=== PATIENT | female | born 1990 | race Caucasian/White ===

== ENCOUNTER → 2018-09-08 | Outpatient (CLI) | payer BC | LOC: COL.RAD 07:25 | DX: R10.11 Right upper quadrant pain (principal) ==

== ENCOUNTER → 2018-12-02 | Outpatient (CLI) | payer BC ==
[~2018-12-02] MED LIST: ATARAX 25MG25 MG/TAB PO; IBU600 MG PO; PERCOCET 325 MG1 TA2 PO; PRENATAL; WELLBUTRIN XL150 MG PO; ZYRTEC 10MG10 MG PO
--- NOTE | 2018-12-02 10:48 | NUR ---
Marija Johnathan into the clinic with 6 day old "Antonio" ( [birth year]) for evaluation and weight check. Marija has been using a breast shield and expresses a desire to breastfeed without it. Marija states Antonio nurses 7-8 times per day, has 4-5 wet diapers per day, and 4 brown/seedy soiled diapers. Today, Antonio' weight was 8#1 oz (3650 g) and d/c weight was 7# 6 oz (3355 g). Today's prefeed weight was 7# 3.5 oz (3274 g), putting infant at 10 % below weight. While at clinic LC assisted with latching without the use of the shield. nursed for approx 15 min from each breast, the went back to the first breast for another 5 min taking a total of 1.5 oz (41 g). Due to concern with latch and low transfer, this LC evaluated infant's mouth and noted tight sublinqual frenulum that may be impending Antonio' latch and milk transfer. Information for local pediatric dentist provided. Plan of care: Continue to feed ad mandy at least 8 times per day, offering each breast per feeding. Breastfeed without shield if able to obtain a good latch, otherwise use shield as needed. Pump and supplement 1 oz EBM after each feeding. Continue to monitor weight gain at clinic or pediatricians office. Contact pediatric dentist to have possible tongue tie evaluated. Questions invited and answered. Understanding verbalized.
== END ==
LOC: LAC 10:06
DX: Z39.1 Encounter for care and examination of lactating mother (principal); Z71.89 Other specified counseling

== ENCOUNTER → 2018-12-09 | Outpatient (CLI) | payer BC | LOC: LAC 10:03 | DX: Z39.1 Encounter for care and examination of lactating mother (principal); Z71.89 Other specified counseling ==

== ENCOUNTER → 2018-12-16 | Outpatient (CLI) | payer BC ==
--- NOTE | 2018-12-16 10:39 | NUR ---
Pt, Marija Mann, presents to walk-in clinic with 3 week old baby boy, Antonio Mann, for a weight check. They have attened clinic regularly since his . Antonio was born on [birth year] and weighed 8# 0.8oz. Last week he weighed 8# 0.7oz. Today he weighs 8# 6.7oz. Pt states Antonio is now exclusively breatfed, he wakes himself for most feedings, has QS voids and stools, and she is natalie able to pump and save some milk for returning to work in the future. POC: Breasfeed ad mandy, follow up for weight checks as desired. Questions invited and answered.
== END ==
LOC: LAC 10:25
DX: Z39.1 Encounter for care and examination of lactating mother (principal); Z71.89 Other specified counseling

== ENCOUNTER → 2021-05-05 | Outpatient (CLI) | payer BC ==
[~2021-05-05] MED LIST changes: +IBU800 M1 PO; +NATURAL IRON65 MG
== END ==
LOC: ZCOL.LAB 10:13
DX: Z20.822 Contact with and (suspected) exposure to COVID-19 (principal)

== ENCOUNTER 2021-05-10 05:31 | Inpatient (IN) | payer BC ==
[~2021-05-10] VITALS: Ht 160 cm; Wt 98.6 kg
[2021-05-10] VITALS (16 sets, daily range): BP systolic 80–119; BP diastolic 47–88; PULSE 65–81; TEMP 97.8–98.4
[~2021-05-10 05:31] MED LIST changes: -IBU800 M1 PO; -NATURAL IRON65 MG
[2021-05-10] MEDS ORDERED: NATURAL IRON65 MG (06:36)
[2021-05-10 06:46] LABS: BASO # 0.1 (0.0-0.2); BASO % 0.5 % (0.0-2.0); EOS # 0.1 (0.0-0.7); EOS % 0.9 % (0-4.0); GRAN # 6.1 (1.4-6.5); GRAN % 61.4 % (42.2-75.2); HEMOGLOBIN 11.2 g/dl (12.5-16.0); LYMPH # 3.2 (1.2-3.4); LYMPH % 31.9 % (20.0-51.0); MEAN CELL VOLUME 105 fl (80.0-100.0); MEAN CORPUSCULAR HEMOGLOBIN 36 pg (27.0-31.0); MEAN CORPUSCULAR HGB CONC 35 g/dl (33.0-37.0); MEAN PLATELET VOLUME 10.1 fl (7.4-10.4); MONO # 0.5 (0.1-0.6); MONO % 4.7 % (1.7-9.3); PLATELET COUNT 202 K/mm3 (130-400); RED BLOOD COUNT 3.09 M/mm3 (4.10-5.30); REDCELL DISTRIBUTION WIDTH-CV 17.4 % (11.5-14.5)
[2021-05-10 06:50] LABS: HEMATOCRIT 32.3 % (37.0-47.0)
[2021-05-10] MEDS ORDERED: IBU800 M1 PO (12:29)
[2021-05-10] MEDS ORDERED: PERCOCET 325 MG1 TA2 PO (12:29)
--- NOTE | 2021-05-10 17:00 | NUR ---
Pt up to the bathroom with standby assistance and without complications. Retana removed and jesus manuel-care done. Assisted pt back to bed. Plan of care reviewed.
[2021-05-11 00:30] VITALS: BP 107/59; PULSE 63; TEMP 98.7
[2021-05-11 08:00] VITALS: BP 105/67; PULSE 69; TEMP 97.8
[2021-05-11 20:40] VITALS: BP 117/96; PULSE 89; TEMP 97.6
[2021-05-12 07:00] VITALS: BP 105/57; PULSE 92; TEMP 97.7
== END 2021-05-12 10:00 | disposition home or self-care (01) | DRG 788 ==
LOC: OB 05:31
PROVIDERS: ADMIT Student in an Organized Health Care Education/Training Program
PROC: 10D00Z1 Extraction of Products of Conception, Low, Open Approach (ICD-10-PCS; principal; 2021-05-10)
DX: O34.211 Maternal care for low transverse scar from previous cesarean delivery (principal); O99.214 Obesity complicating childbirth; E66.9 Obesity, unspecified; O99.02 Anemia complicating childbirth; O99.344 Other mental disorders complicating childbirth; O76 Abnormality in fetal heart rate and rhythm complicating labor and delivery; D64.9 Anemia, unspecified; F41.8 Other specified anxiety disorders; Z3A.39 39 weeks gestation of pregnancy; Z37.0 Single live birth
CPT/HCPCS: J0690; J1100; J1885; J2405; J2590; J7120

== ENCOUNTER 2024-06-30 15:51 | Day surgery (SDC) | payer BC ==
[~2024-06-30] VITALS: Ht 157.5 cm; Wt 81.8 kg
[~2024-06-30 15:51] MED LIST changes: +IBU800 M1 PO; +LAMICTAL200 MG PO; +NATURAL IRON65 MG; +VYVANSE20 MG PO
[2024-06-30 17:11] LABS: BASO # 0.1 K/mm3 (0.0-0.2); BASO % 0.5 % (0.0-2.0); EOS # 0.1 K/mm3 (0.0-0.7); EOS % 0.8 % (0.0-4.0); GRAN # 8.2 K/mm3 (1.4-6.5); GRAN % 79.5 % (42.2-75.2); HEMATOCRIT 37.1 % (37.0-47.0); HEMOGLOBIN 13.2 g/dl (12.5-16.0); LYMPH # 1.6 K/mm3 (1.2-3.4); LYMPH % 15.6 % (20.0-51.0); MEAN CELL VOLUME 97 fl (80.0-100.0); MEAN CORPUSCULAR HEMOGLOBIN 35 pg (27-31); MEAN CORPUSCULAR HGB CONC 36 g/dl (33.0-37.0); MEAN PLATELET VOLUME 9.6 fl (7.4-10.4); MONO # 0.3 K/mm3 (0.1-0.6); MONO % 3.2 % (1.7-9.3); PLATELET COUNT 306 K/mm3 (130-400); RED BLOOD COUNT 3.83 M/mm3 (4.10-5.30); REDCELL DISTRIBUTION WIDTH-CV 14.1 % (11.5-14.5)
[2024-06-30 17:29] LABS: ALBUMIN 4.8 g/dL (3.5-5.0); BILIRUBIN,TOTAL 2.1 mg/dL (0.2-1.2); C-REACTIVE PROTEIN 0.21 mg/dL (0.00-0.50); CALCIUM 9.3 mg/dL (8.4-10.2); CREATININE, serum 1.02 mg/dL (0.57-1.11); POTASSIUM 3.3 mEq/L (3.5-4.5); TOTAL PROTEIN 7.6 g/dl (6.2-8.1)
[2024-06-30] MEDS ORDERED: Ondansetron 4 MG/2 ML VIAL IV ONE ×2 (17:30→20:30)
[2024-06-30] MEDS ORDERED: Ketorolac 30 MG/ML VIAL IV ONE (17:30)
[2024-06-30] MEDS ORDERED: HYDROmorphone 0.5 MG/0.5 ML SYRINGE IV ONE ×2 (17:30→20:15)
[2024-06-30] MEDS ORDERED: NS 1,000 ML IV ONE (17:30)
[2024-06-30 18:47] LABS: COLLECTION METHOD CLEAN CATCH
[2024-06-30 18:55] LABS: PH 6.5 (5.0-8.5); URINE APPEARANCE CLEAR (CLEAR/HAZY); URINE BLOOD 3+ (NEGATIVE); URINE COLOR YELLOW (YELLOW); URINE GLUCOSE NEGATIVE (NEGATIVE); URINE KETONE 3+ (NEGATIVE); URINE NITRATE NEGATIVE (NEGATIVE); URINE PROTEIN(semi-quant) 1+ (NEGATIVE)
[2024-06-30] MEDS ORDERED: Iohexol 300 - 100 ML VIAL IV ONE (19:52)
[2024-06-30] MEDS ORDERED: NS 100 ML IV ONE (19:53)
[2024-07-01] VITALS (10 sets, daily range): BP systolic 98–118; BP diastolic 59–93; PULSE 63–95; TEMP 97.2–98.2
[2024-07-01] MEDS ORDERED: HYDROmorphone 0.5 MG/0.5 ML SYRINGE IV PRN (02:30)
[2024-07-01] MEDS ORDERED: Ketorolac 15 MG/ML VIAL IV SCH (02:30)
[2024-07-01] MEDS ORDERED: NS 1,000 ML IV SCH (02:30)
[2024-07-01] MEDS ORDERED: Ondansetron 4 MG/2 ML VIAL IV PRN ×3 (02:30→17:30)
[2024-07-01] MEDS ORDERED: Meclizine 25 MG TAB PO SCH (07:45)
[2024-07-01] MEDS ORDERED: LR 1,000 ML IV SCH (07:45)
--- NOTE | 2024-07-01 08:28 | NUR ---
[place] brought [place] [facility] [facility] [place] w/c by ED nurse. Report received. Pt oriented to room, call light, and bathroom. Pt repors that her last dose of pain medication in the ED has helped significantly. Bath wipes given per patient request.
--- NOTE | 2024-07-01 09:45 | NUR ---
Pt resting on cart with eyes shut, lights off. Denies complaints.
--- NOTE | 2024-07-01 10:52 | NUR ---
Patient woke up nauseated and with pain 5/10. Scheduled toradol given, IV fluids infusing. Washcloth and emesis bag given. Pt resting on cart with lights off, eyes shut. Call light within reach.
--- NOTE | 2024-07-01 11:26 | NUR ---
Pt reports feeling "much better" Denies nausea at this time, reports pain is 1/10. VSS. Call light within reach.
[2024-07-01] MEDS ORDERED: fentaNYL 50 MCG/ML 2 ML VIAL ONE (15:45)
[2024-07-01] MEDS ORDERED: Ondansetron 4 MG/2 ML VIAL ONE (15:46)
[2024-07-01] MEDS ORDERED: NS 10 ML IV ONE (15:46)
[2024-07-01] MEDS ORDERED: Ketorolac 30 MG/ML VIAL ONE (15:46)
[2024-07-01] MEDS ORDERED: Glycopyrrolate 0.2 MG/ML 1 ML VIAL ONE (15:46)
[2024-07-01] MEDS ORDERED: Lidocaine PF 2% (20 MG/ML) 5 ML VIAL ONE (15:46)
--- NOTE | 2024-07-01 16:14 | NUR ---
Anesthesia in room to speak with patient, consent signed. Preop medications given, see EMAR. Questions answered.
[2024-07-01] MEDS ORDERED: fentaNYL 50 MCG/ML 1 ML SYRINGE/VIAL [PACU/SDC ONLY] IV PRN (16:15)
[2024-07-01] MEDS ORDERED: droPERidol 2.5 MG/ML 2 ML VIAL IV PRN (16:15)
[2024-07-01] MEDS ORDERED: Scopolamine 1 MG Delivered 3-Day PATCH TD SCH (16:15)
[2024-07-01] MEDS ORDERED: HYDROmorphone 1 MG/1 ML SYRINGE [PACU/SDC ONLY] IV PRN (16:15)
[2024-07-01] MEDS ORDERED: hydrALAZINE 20 MG/ML 1 ML VIAL IV PRN (16:15)
[2024-07-01] MEDS ORDERED: Iohexol 350 - 100 ML VIAL URETER -L ONE (16:50)
[2024-07-01] MEDS ORDERED: Lidocaine 2% (20 MG/ML) 20 ML UROJET UR ONE (17:10)
[2024-07-01] MEDS ORDERED: PYRIDIUM 100MG100 MG PO (17:21)
[2024-07-01] MEDS ORDERED: NORCO 325 MG-51 TAB PO (17:21)
[2024-07-01] MEDS ORDERED: Naloxone 0.4 MG/ML VIAL IV PRN (17:30)
[2024-07-01] MEDS ORDERED: oxyCODONE 5 MG TAB PO PRN (17:30)
[2024-07-01] MEDS ORDERED: Hyoscyamine 0.125 MG Sublingual TAB SL PRN (17:30)
[2024-07-01] MEDS ORDERED: Acetaminophen 325 MG TAB PO PRN (17:30)
--- NOTE | 2024-07-01 18:00 | NUR ---
PATIENT ADMITED TO ROOM 350. UPON ARRIVAL PATIENT AMBULATED TO BATHROOM AND VOIDED. A&O. VSS. NO C/O PAIN OR NAUSEA. IV FLUIDS INFUSING INTO LEFT WRIST. HEAD TO TOE ASSESSMENT WNL. PLAN IS TO DISCHARGE HOME LATER TONIGHT. PATIENT LOOKING AT MENU. FAMILY AT BEDSIDE. ORIENTED TO ROOM. CALL LIGHT IN REACH.
--- NOTE | 2024-07-01 19:40 | NUR ---
PATIENT MEET DISCHARGE CRITERIA. NO COMPLAINTS. TOLERATING GENERAL DIET. VOIDED X2. GAVE DISCHARGE INSTRUCTIONS, E-SCRIPTS SENT, AND DISCUSSED F/U APT. ANSWERED QUESTIONS/CONCERNS. DC'D IV SITE AND COVERED SITE WITH JENNIFER & JOSLYN. PATIENT IS DRESSED, PACKED AND AMBULATORY TO PERSONAL VEHICLE WITH FAMILY.
== END 2024-07-01 19:40 | disposition home or self-care (01) ==
LOC: COL.ER 15:51 → INPTSU 20:46 → SURG 20:46 → SDCO 20:46 → INPTSU 20:46 → SURG 07-01 18:06 → SDCO 07-01 19:40 → SURG 07-01 19:40
PROVIDERS: Nurse Practitioner
DX: N20.2 Calculus of kidney with calculus of ureter (principal); D64.9 Anemia, unspecified; F41.9 Anxiety disorder, unspecified; F32.A Depression, unspecified
CPT/HCPCS: OP; C1769; C1894; C2617; G0378; J0690; J1170; J1885; J2405; J2704; J3010; J7030; Q9967